=== PATIENT | male | born 1980 ===

== ENCOUNTER 2016-08-20 12:32 | Emergency (ER) | payer MEDICAID ==
[2016-08-20] MEDS ORDERED: Sodium Chloride 0.9% 1,000 ML IV ONE (13:04)
--- NOTE | 2016-08-20 13:09 | C.PDOC ---
History Of Present Illness 36 y/o male presents to ED with complaints of LUQ abdominal pain for 1 day. Patient is a non smoker but admits to consuming ETOH. Patient reports no past medical problems and denies fever, chills, nausea, vomiting, trauma or any other complaints at this time. Time Seen by Provider: 08/20/16 12:53 Chief Complaint (Nursing): Abdominal Pain History Per: Patient History/Exam Limitations: no limitations Onset/Duration Of Symptoms: Days Current Symptoms Are (Timing): Still Present Location Of Pain/Discomfort: LUQ Past Medical History Reviewed: Historical Data, Nursing Documentation, Vital Signs Vital Signs: Last Vital Signs Temp 98.2 F 08/20/16 14:58 Pulse 64 08/20/16 14:58 Resp 20 08/20/16 14:58 BP 110/69 08/20/16 14:58 Pulse Ox 97 08/20/16 15:02 Family History: States: Unknown Family Hx - Social History Hx Tobacco Use: Yes Hx Alcohol Use: Yes Hx Substance Use: No - Immunization History Hx Influenza Vaccination: No Hx Pneumococcal Vaccination: No Review Of Systems Except As Marked, All Systems Reviewed And Found Negative. Constitutional: Negative for: Fever, Chills Gastrointestinal: Positive for: Abdominal Pain. Negative for: Nausea, Vomiting , Diarrhea Musculoskeletal: Negative for: Back Pain Skin: Negative for: Rash Physical Exam - Physical Exam Appears: Non-toxic, No Acute Distress Head: Atraumatic, Normacephalic Oral Mucosa: Moist Throat: Normal Cardiovascular: Rhythm Regular, No Murmur Respiratory: Normal Breath Sounds, No Rales, No Rhonchi, No Wheezing Gastrointestinal/Abdominal: Tenderness (LUQ Tenderness), No Guarding, No Rebound Extremity: Normal ROM, Capillary Refill (<2 seconds) Neurological/Psych: Oriented x3 Gait: Steady ED Course And Treatment - Laboratory Results Result Diagrams: 08/20/16 13:11 08/20/16 13:11 Lab Interpretation: Normal O2 Sat by Pulse Oximetry: 97 (RA) Pulse Ox Interpretation: Normal - CT Scan/US No standard instances Other Rad Studies (CT/US): Read By Radiologist, Radiology Report Reviewed CT/US Interpretation: FINDINGS: LOWER THORAX: Unremarkable. LIVER: Unremarkable. No gross lesion or ductal dilatation. GALLBLADDER AND BILE DUCTS : The gallbladder is contracted. No biliary tree dilatation is grossly appreciated. PANCREAS: Unremarkable. No gross lesion or ductal dilatation. SPLEEN: Unremarkable. ADRENALS: Unremarkable. No massThe 3.3 cm lucent lesion is again seen in the left adrenal gland measuring -7 Hounsfield units compatible with a benign adrenal adenoma. The right adrenal gland appears unremarkable once again. KIDNEYS AND URETERS: Unremarkable. No hydronephrosis. No perinephric reaction. VASCULATURE: Unremarkable. No aortic aneurysm. BOWEL: The stomach is distended with retained food and fluid. Relatively prominent fecal loading throughout the colon may indicate an element of constipation. Clinically correlate further. No obstruction. No gross mural thickening. APPENDIX: Unremarkable. Normal appendix. PERITONEUM: Unremarkable. No free fluid. No free air. LYMPH NODES: Unremarkable. No enlarged lymph nodes. BLADDER: Unremarkable. REPRODUCTIVE: Dystrophic calcifications appreciated within a normal sized prostate gland. BONES: No acute fracture. OTHER FINDINGS: None. IMPRESSION: 1. No definite acute intra -abdominal or pelvic findings including left upper quadrant anatomy. The lack of contrast agents limits interpretation. 2. A stable benign adrenal adenoma is appreciated the left adrenal gland 3.3 cm. 3. Relatively prominent fecal loading is seen throughout the colon potentially reflecting constipation. Clinically correlate further. Progress Note: Treated with IVF NSS. On re-evaluation abdomen soft Reassessment Condition: Improved Medical Decision Making Medical Decision Making: Plans: * CT w/o contrast * Labs Disposition Counseled Patient/Family Regarding: Studies Performed, Diagnosis, Need For Followup, Rx Given - Disposition Referrals: [facility] [Outside] [facility] [Outside] Disposition: HOME/ ROUTINE Disposition Time: 15:00 Condition: STABLE Additional Instructions: Return to ED if any increase symptoms Instructions: Abdominal Pain (ED) - POA Present On Arrival: None - Clinical Impression Clinical Impression: Abdominal pain - Scribe Statement The provider has reviewed the documentation as recorded by the Yariel Tomlinson All medical record entries made by the Yariel were at my direction and personally dictated by me. I have reviewed the chart and agree that the record accurately reflects my personal performance of the history, physical exam, medical decision making, and the department course for this patient. I have also personally directed, reviewed, and agree with the discharge instructions and disposition.
[2016-08-20] MEDS ORDERED: Sodium Chloride 0.9% 1,000 ML ONE (13:14)
[2016-08-20 13:16] LABS: BASO % 0.5 % (0.0-2.0); EOS # 0.3 K/uL (0.0-0.7); EOS % 3.4 % (0.0-4.0); HEMOGLOBIN 15.1 g/dL (12.0-18.0); LYMPH # 1.9 K/uL (1.0-4.3); LYMPH % 19.7 % (20.0-40.0); MEAN CELL VOLUME 85.6 fL (80.0-94.0); MEAN CORPUSCULAR HEMOGLOBIN 27.9 pg (27.0-31.0); MEAN CORPUSCULAR HGB CONC 32.6 g/dL (33.0-37.0); MEAN PLATELET VOLUME 8.2 fL (7.2-11.7); MONO # 0.6 K/uL (0.0-0.8); MONO % 6.6 % (0.0-10.0); NEUT # 6.6 K/uL (1.8-7.0); NEUT % 69.8 % (50.0-75.0); NRBC % 0.1 % (0.0-2.0); RBC 5.42 Mil/uL (4.40-5.90); RED CELL DISTRIBUTION WIDTH 13.6 % (11.5-14.5); WHITE BLOOD COUNT 9.4 K/uL (4.8-10.8)
[2016-08-20 13:24] LABS: ALBUMIN 4.3 g/dL (3.5-5.0)
[2016-08-20 13:26] LABS: URINE BILIRUBIN NEGATIVE (NEGATIVE); URINE BLOOD NEGATIVE (NEGATIVE); URINE CLARITY Clear (Clear); URINE COLOR Yellow (YELLOW); URINE GLUCOSE (UA) NORMAL (Normal); URINE LEUKOCYTE ESTERASE NEG Leu/uL (Negative); URINE NITRATE NEGATIVE (NEGATIVE); URINE PROTEIN NEGATIVE (NEGATIVE); URINE UROBILINOGEN NORMAL mg/dL (0.2-1.0)
[2016-08-20 13:27] LABS: ALB/GLOB RATIO 1.3 (1.0-2.1); ALT/SGPT 28 U/L (21-72); AST/SGOT 22 U/L (17-59); BLOOD UREA NITROGEN 19 mg/dL (9-20); GFR AFRICAN-AMERICAN > 60; GFR NON-AFRICAN AMERICAN > 60
[2016-08-20 13:28] LABS: CALCIUM 9.3 mg/dl (8.6-10.4); LIPASE 31 U/L (23-300)
--- NOTE | 2016-08-20 14:51 | CT ---
PROCEDURE: CT Abdomen and Pelvis without intravenous contrast HISTORY: Pain COMPARISON: Abdomen pelvis CT dated 02/14/2014. TECHNIQUE: Technique. Contrast Dose: Radiation dose: Total exam DLP = 529 mGy-cm. This CT exam was performed using one or more of the following dose reduction techniques: Automated exposure control, adjustment of the mA and/or kV according to patient size, and/or use of iterative reconstruction technique. FINDINGS: LOWER THORAX: Unremarkable. LIVER: Unremarkable. No gross lesion or ductal dilatation. GALLBLADDER AND BILE DUCTS: The gallbladder is contracted. No biliary tree dilatation is grossly appreciated. PANCREAS: Unremarkable. No gross lesion or ductal dilatation. SPLEEN: Unremarkable. ADRENALS: Unremarkable. No massThe 3.3 cm lucent lesion is again seen in the left adrenal gland measuring -7 Hounsfield units compatible with a benign adrenal adenoma. The right adrenal gland appears unremarkable once again. KIDNEYS AND URETERS: Unremarkable. No hydronephrosis. No perinephric reaction. VASCULATURE: Unremarkable. No aortic aneurysm. BOWEL: The stomach is distended with retained food and fluid. Relatively prominent fecal loading throughout the colon may indicate an element of constipation. Clinically correlate further. No obstruction. No gross mural thickening. APPENDIX: Unremarkable. Normal appendix. PERITONEUM: Unremarkable. No free fluid. No free air. LYMPH NODES: Unremarkable. No enlarged lymph nodes. BLADDER: Unremarkable. REPRODUCTIVE: Dystrophic calcifications appreciated within a normal sized prostate gland. BONES: No acute fracture. OTHER FINDINGS: None. IMPRESSION: 1. No definite acute intra-abdominal or pelvic findings including left upper quadrant anatomy. The lack of contrast agents limits interpretation. 2. A stable benign adrenal adenoma is appreciated the left adrenal gland 3.3 cm. 3. Relatively prominent fecal loading is seen throughout the colon potentially reflecting constipation. Clinically correlate further.
[2016-08-20 15:00] VITALS: BP 110/69; PULSE 64; RESP 20; TEMP 98.2
[2016-08-20 15:01] VITALS: O2SAT 97
== END 2016-08-20 15:14 | disposition home or self-care (01) ==
LOC: C.ER 12:32
DX: R10.12 Left upper quadrant pain (principal)
CPT/HCPCS: 74176; 80053; 81001; 83690; 85025; 96361; 96374; 99285; J1885; J7040